=== PATIENT | male | born 1990 | race Hispanic/Latino ===

== ENCOUNTER 2018-11-06 10:15 | Emergency (ER) | payer BC ==
[2018-11-06] MEDS ORDERED: DILAUDID ONE (10:44)
[2018-11-06] MEDS ORDERED: ZOFRAN ONE (10:47)
[2018-11-06] MEDS ORDERED: DILAUDID IV ONE (10:52)
[2018-11-06] MEDS ORDERED: ZOFRAN IV ONE (10:54)
--- NOTE | 2018-11-06 10:57 | XRay Report ---
LEFT HAND, 3 views: History: Hand injury. Findings: A metallic foreign body consistent with a nail is embedded within digits 2 and 3. There is no obvious bony injury or joint pathology. A bandage is in place. IMPRESSION: Foreign body as described. No obvious osseous injury.
[2018-11-06] MEDS ORDERED: BOOSTRIX IM ONE (10:58)
[2018-11-06] MEDS ORDERED: NACL 0.9% IR NR (10:58)
[2018-11-06] MEDS ORDERED: DIPRIVAN 10 MG/ML IV ONE ×2 (10:58→12:11)
[2018-11-06] MEDS ORDERED: SODIUM CHLORIDE FLUSH SYRINGE 10 ML IV NR (11:00)
[2018-11-06] MEDS ORDERED: NACL 0.9% 1000 ML 0 ML ONE (11:05)
--- NOTE | 2018-11-06 11:05 | Emergency Department Report ---
ED General Adult HPI - General Chief complaint: Extremity Injury, Upper Stated complaint: FINGER INJURY Time Seen by Provider: 11/06/18 10:57 Source: patient, family Mode of arrival: Ambulatory Limitations: Physical Limitation - History of Present Illness Initial comments: This is a 28-year-old gentleman, right-hand dominant, with no chronic medical conditions, who presents to the emergency room with a nail that is accidentally shot into his left hand, into the left second and third fingers. This happened just prior to arrival. He has no other injuries. He has no other complaints. He endorses sharp pain, which does not radiate anywhere, which increases with palpation and decreases with rest. He endorses no numbness. He denies other injuries. Not sure of previous tetanus vaccination. He reports that he last ate at approximately 8:00 AM. -: Sudden Location: left, upper extremity Radiation: non-radiation Severity scale (0 -10): 10 Quality: aching Consistency: other Improves with: other Associated Symptoms: denies other symptoms - Related Data Previous Rx's Medication Instructions Recorded Last Taken Type Acetaminophen [Non-Aspirin Extra 500 mg PO Q6HR PRN #30 tablet 11/06/18 Unknown Rx Strength] Ibuprofen [Motrin] 600 mg PO Q8H PRN #30 tablet 11/06/18 Unknown Rx cephALEXin [Keflex] 500 mg PO Q6HR #28 capsule 11/06/18 Unknown Rx oxyCODONE [Roxicodone] 5 mg PO Q6HR PRN #15 tablet 11/06/18 Unknown Rx Allergies Allergy/AdvReac Type Severity Reaction Status Date / Time No Known Allergies Allergy Unverified 11/06/18 10:17 ED Review of Systems ROS: Stated complaint: FINGER INJURY Other details as noted in HPI Constitutional: denies: fever Eyes: denies: eye discharge ENT: denies: epistaxis Respiratory: denies: cough Cardiovascular: denies: chest pain Gastrointestinal: denies: abdominal pain Musculoskeletal: arthralgia, myalgia Neurological: denies: headache, weakness, numbness, paresthesias, confusion Psychiatric: anxiety ED Past Medical Hx - Past Medical History Previous Medical History?: No - Surgical History Past Surgical History?: Yes Hx Appendectomy: Yes - Social History Smoking Status: Never Smoker Substance Use Type: None - Medications Home Medications: Home Medications Medication Instructions Recorded Confirmed Last Taken Type Acetaminophen [Non-Aspirin Extra 500 mg PO Q6HR PRN #30 tablet 11/06/18 Unknown Rx Strength] Ibuprofen [Motrin] 600 mg PO Q8H PRN #30 tablet 11/06/18 Unknown Rx cephALEXin [Keflex] 500 mg PO Q6HR #28 capsule 11/06/18 Unknown Rx oxyCODONE [Roxicodone] 5 mg PO Q6HR PRN #15 tablet 11/06/18 Unknown Rx ED Physical Exam - General Limitations: No Limitations, Physical Limitation General appearance: alert, anxious, in distress - Head Head exam: Present: atraumatic, normocephalic - Eye Eye exam: Present: normal appearance, EOMI, nystagmus - ENT ENT exam: Present: normal exam, normal orophraynx, mucous membranes moist, normal external ear exam - Neck Neck exam: Present: normal inspection, full ROM. Absent: tenderness, meningismus - Respiratory Respiratory exam: Present: normal lung sounds bilaterally. Absent: respiratory distress - Cardiovascular Cardiovascular Exam: Present: regular rate, normal rhythm, normal heart sounds. Absent: bradycardia, tachycardia, irregular rhythm, systolic murmur, diastolic murmur, rubs, gallop - GI/Abdominal GI/Abdominal exam: Present: soft. Absent: distended, tenderness, guarding, rebound, rigid, pulsatile mass - Rectal Rectal exam: Present: deferred - Extremities Exam Extremities exam: Present: normal capillary refill, other (2+ pulses noted in the bilateral upper, lower extremities. Compartments soft. No long bony tenderness. The pelvis is stable.). Absent: normal inspection (full range of motion to the right upper extremity, bilateral lower extremities. In the left upper extremity, a metallic nail is noted, entering the lateral midline aspect of the second finger, and exiting through the same finger, and subsequently entering into the lateral mid aspect of the third digit. ) - Back Exam Back exam: Present: normal inspection, full ROM. Absent: tenderness, CVA tenderness (R), CVA tenderness (L), paraspinal tenderness, vertebral tenderness - Neurological Exam Neurological exam: Present: alert, oriented X3, other (Extraocular movements intact. Tongue midline. No facial droop. Facial sensation intact to light touch in the V1, V2, V3 distribution bilaterally. 5 and 5 strength in 4 extremities.. Sensation is intact to light touch in 4 extremities.). Absent: motor sensory deficit - Psychiatric Psychiatric exam: Present: anxious - Skin Skin exam: Present: warm, dry, intact, normal color. Absent: rash ED Course Vital Signs 11/06/18 11/06/18 11/06/18 10:16 11:04 11:15 Temperature 97.5 F L Temperature [ Post-Procedure] Temperature [ Pre-Procedure] Pulse Rate 88 63 58 L Pulse Rate [ Intra-Procedure ] Pulse Rate [ Post-Procedure] Pulse Rate [Pre -Procedure] Respiratory 20 13 7 L Rate Respiratory Rate [Intra- Procedure] Respiratory Rate [Post- Procedure] Respiratory Rate [Pre- Procedure] Blood Pressure 135/74 108/62 Blood Pressure [Intra- Procedure] Blood Pressure [Post-Procedure ] Blood Pressure [Pre-Procedure] O2 Sat by Pulse 99 Oximetry O2 Sat by Pulse Oximetry [ Intra-Procedure ] 11/06/18 11/06/18 11/06/18 11:30 11:40 11:41 Temperature Temperature [ Post-Procedure] Temperature [ 98 F Pre-Procedure] Pulse Rate 58 L Pulse Rate [ 60 Intra-Procedure ] Pulse Rate [ Post-Procedure] Pulse Rate [Pre 68 -Procedure] Respiratory 10 L Rate Respiratory 12 Rate [Intra- Procedure] Respiratory Rate [Post- Procedure] Respiratory 12 Rate [Pre- Procedure] Blood Pressure 115/70 Blood Pressure 115/70 [Intra- Procedure] Blood Pressure [Post-Procedure ] Blood Pressure 113/72 [Pre-Procedure] O2 Sat by Pulse Oximetry O2 Sat by Pulse 2 L Oximetry [ Intra-Procedure ] 11/06/18 11/06/18 11/06/18 11:45 11:50 11:56 Temperature Temperature [ 98 F Post-Procedure] Temperature [ Pre-Procedure] Pulse Rate 57 L Pulse Rate [ Intra-Procedure ] Pulse Rate [ 62 Post-Procedure] Pulse Rate [Pre -Procedure] Respiratory 12 16 Rate Respiratory Rate [Intra- Procedure] Respiratory 14 Rate [Post- Procedure] Respiratory Rate [Pre- Procedure] Blood Pressure 113/72 Blood Pressure [Intra- Procedure] Blood Pressure 127/82 [Post-Procedure ] Blood Pressure [Pre-Procedure] O2 Sat by Pulse 94 Oximetry O2 Sat by Pulse Oximetry [ Intra-Procedure ] 11/06/18 11/06/18 11/06/18 12:01 12:15 12:30 Temperature Temperature [ Post-Procedure] Temperature [ Pre-Procedure] Pulse Rate 65 61 53 L Pulse Rate [ Intra-Procedure ] Pulse Rate [ Post-Procedure] Pulse Rate [Pre -Procedure] Respiratory 13 10 L 12 Rate Respiratory Rate [Intra- Procedure] Respiratory Rate [Post- Procedure] Respiratory Rate [Pre- Procedure] Blood Pressure 136/89 136/89 118/78 Blood Pressure [Intra- Procedure] Blood Pressure [Post-Procedure ] Blood Pressure [Pre-Procedure] O2 Sat by Pulse 100 100 100 Oximetry O2 Sat by Pulse Oximetry [ Intra-Procedure ] 11/06/18 11/06/18 11/06/18 12:45 13:01 13:15 Temperature Temperature [ Post-Procedure] Temperature [ Pre-Procedure] Pulse Rate 53 L 79 57 L Pulse Rate [ Intra-Procedure ] Pulse Rate [ Post-Procedure] Pulse Rate [Pre -Procedure] Respiratory 9 L 14 11 L Rate Respiratory Rate [Intra- Procedure] Respiratory Rate [Post- Procedure] Respiratory Rate [Pre- Procedure] Blood Pressure 119/77 118/78 118/78 Blood Pressure [Intra- Procedure] Blood Pressure [Post-Procedure ] Blood Pressure [Pre-Procedure] O2 Sat by Pulse 97 97 100 Oximetry O2 Sat by Pulse Oximetry [ Intra-Procedure ] - Reevaluation(s) Reevaluation #1: 11/06/18 13:44 After foreign body removal, patient was noted to be flexing and extending individual fingers without difficulty. Discussed with orthopedics on-call, Dr. Lloyd, who was in agreement with foreign body extraction, thorough cleansing, empiric prophylactic antibiotic coverage, and indicates his group can follow-up with the patient as an outpatient. Extensive discussion had with patient and his . Instructed them that they would need to closely follow up with an outpatient hand surgeon for further evaluation and management. Described the patient would likely need to follow-up with the Worker's Compensation physician. Patient and endorse understanding. Reevaluation #2: 11/06/18 19:51 Mike Carrion, respiratory therapy, present for entire sedation - Procedure Description Procedures done: After moderate sedation with propofol and ketamine, please see moderate sedation portion of procedures documentation, the nail was grasped firmly, and removed with gentle manual traction without difficulty. The patient tolerated this adequately. Then, each finger was irrigated with 500 mL of sterile saline, and another 500 mL of sterile saline with Betadine. Then, each finger was scrubbed thoroughly with soap and a surgical brush, and then Xeroform gauze was gently placed over each aspect of the wound, and then a 4 x 4 dressing was applied, and a frog finger splint was subsequently applied to each finger. The patient tolerated this procedure well, without difficulty. - Moderate Sedation Indications: other Presedation Evaluation: Patient last ate at 8:00 AM. Patient is ASA class I. Endorses no contraindications to moderate sedation. No tobacco use. Risks, benefits, alternatives were discussed with the patient and family, who verbalized understanding, and gave consent for moderate sedation for foreign body extraction, and subsequent thorough cleaning, and splinting. ASA Class: I Mallampati Airway Score: 1 Preparation: registered nurse cardiac telemetry applied, pulse oximeter, reversal agents at bedside , suction/airway equipment at bedside, IV secured Ketamine: IV Ketamine Dose: 50 IV Propofol Dose (mgs): 50 Complications: vomiting/aspiration Interventions: oxygen applied, airway repositioned Patient Tolerated Procedure: well - Orthopedic Splinting/Casting Injury #1 Side: left Upper Extremity Injury Location: finger (second digit) Upper Extremity Immobilizer: finger (other) (frog finger splint) Injury #2 Upper Extremity Injury Location: finger (third digit) Upper Extremity Immobilizer: finger (other) (frog splint) ED Medical Decision Making - Lab Data Vital Signs 11/06/18 11/06/18 11/06/18 10:16 11:04 11:15 Temperature 97.5 F L Temperature [ Post-Procedure] Temperature [ Pre-Procedure] Pulse Rate 88 63 58 L Pulse Rate [ Intra-Procedure ] Pulse Rate [ Post-Procedure] Pulse Rate [Pre -Procedure] Respiratory 20 13 7 L Rate Respiratory Rate [Intra- Procedure] Respiratory Rate [Post- Procedure] Respiratory Rate [Pre- Procedure] Blood Pressure 135/74 108/62 Blood Pressure [Intra- Procedure] Blood Pressure [Post-Procedure ] Blood Pressure [Pre-Procedure] O2 Sat by Pulse 99 Oximetry O2 Sat by Pulse Oximetry [ Intra-Procedure ] 11/06/18 11/06/18 11/06/18 11:30 11:40 11:41 Temperature Temperature [ Post-Procedure] Temperature [ 98 F Pre-Procedure] Pulse Rate 58 L Pulse Rate [ 60 Intra-Procedure ] Pulse Rate [ Post-Procedure] Pulse Rate [Pre 68 -Procedure] Respiratory 10 L Rate Respiratory 12 Rate [Intra- Procedure] Respiratory Rate [Post- Procedure] Respiratory 12 Rate [Pre- Procedure] Blood Pressure 115/70 Blood Pressure 115/70 [Intra- Procedure] Blood Pressure [Post-Procedure ] Blood Pressure 113/72 [Pre-Procedure] O2 Sat by Pulse Oximetry O2 Sat by Pulse 2 L Oximetry [ Intra-Procedure ] 11/06/18 11/06/18 11/06/18 11:45 11:50 11:56 Temperature Temperature [ 98 F Post-Procedure] Temperature [ Pre-Procedure] Pulse Rate 57 L Pulse Rate [ Intra-Procedure ] Pulse Rate [ 62 Post-Procedure] Pulse Rate [Pre -Procedure] Respiratory 12 16 Rate Respiratory Rate [Intra- Procedure] Respiratory 14 Rate [Post- Procedure] Respiratory Rate [Pre- Procedure] Blood Pressure 113/72 Blood Pressure [Intra- Procedure] Blood Pressure 127/82 [Post-Procedure ] Blood Pressure [Pre-Procedure] O2 Sat by Pulse 94 Oximetry O2 Sat by Pulse Oximetry [ Intra-Procedure ] 11/06/18 11/06/18 11/06/18 12:01 12:15 12:30 Temperature Temperature [ Post-Procedure] Temperature [ Pre-Procedure] Pulse Rate 65 61 53 L Pulse Rate [ Intra-Procedure ] Pulse Rate [ Post-Procedure] Pulse Rate [Pre -Procedure] Respiratory 13 10 L 12 Rate Respiratory Rate [Intra- Procedure] Respiratory Rate [Post- Procedure] Respiratory Rate [Pre- Procedure] Blood Pressure 136/89 136/89 118/78 Blood Pressure [Intra- Procedure] Blood Pressure [Post-Procedure ] Blood Pressure [Pre-Procedure] O2 Sat by Pulse 100 100 100 Oximetry O2 Sat by Pulse Oximetry [ Intra-Procedure ] 11/06/18 11/06/18 11/06/18 12:45 13:01 13:15 Temperature Temperature [ Post-Procedure] Temperature [ Pre-Procedure] Pulse Rate 53 L 79 57 L Pulse Rate [ Intra-Procedure ] Pulse Rate [ Post-Procedure] Pulse Rate [Pre -Procedure] Respiratory 9 L 14 11 L Rate Respiratory Rate [Intra- Procedure] Respiratory Rate [Post- Procedure] Respiratory Rate [Pre- Procedure] Blood Pressure 119/77 118/78 118/78 Blood Pressure [Intra- Procedure] Blood Pressure [Post-Procedure ] Blood Pressure [Pre-Procedure] O2 Sat by Pulse 97 97 100 Oximetry O2 Sat by Pulse Oximetry [ Intra-Procedure ] - Radiology Data Radiology results: report reviewed, image reviewed Print Report Referring Physician: CRISTI VIZCAINO Patient Name: SINDY CUEVA JR Date of : 1990 Sex: Male Report Date: 2018-11-06 Report Status: Finalized Findings [facility] [address] [place] [address] XRay Report Signed Patient: SINDY CUEVA JR MR#: [id number] : 1990 Acct:[id number] Age/Sex: 28 / M ADM Date: 11/06/18 Loc: ED Attending Dr: Ordering Physician: CRISTI VIZCAINO MD Date of Service: 11/06/18 Procedure(s): XR hand 2V LT Accession Number(s): [id number] cc: CRISTI VIZCAINO MD Fluoro Time In Minutes: LEFT HAND, 3 views: History: Hand injury. Findings: A metallic foreign body consistent with a nail is embedded within digits 2 and 3. There is no obvious bony injury or joint pathology. A bandage is in place. IMPRESSION: Foreign body as described. No obvious osseous injury. Transcribed By: TTR Dictated By: ELIE PIEDRA JR, MD Electronically Authenticated By: ELIE PIEDRA JR, MD Signed Date/Time: 11/06/18 1053 DD/ 1052 TD/TT: 11/06/18 1053 Critical care attestation.: If time is entered above; I have spent that time in minutes in the direct care of this critically ill patient, excluding procedure time. ED Disposition Clinical Impression: Hx of retained foreign body fully removed Penetrating wound of finger Qualifiers: Encounter type: initial encounter Qualified Code(s): S61.239A - Puncture wound without foreign body of unspecified finger without damage to nail, initial encounter Disposition: -01 TO HOME OR SELFCARE Is pt being admited?: No Does the pt Need Aspirin: No Condition: Stable Additional Instructions: Keep the finger splints in place. Wash wounds with gentle soap and water once every 24 hours. Follow-up with an orthopedic or hand surgeon within the next 3- 5 days. Patient will need to follow-up for repeat examination to exclude flexor tendon injury. Not following up as recommended may resultant undiagnosed tendon injury, which may cause disability, loss of quality of life. Take the pain medication, antibiotics as directed. Return to the emergency room right away with redness, pus, streaking, significant swelling, new, worsening or different symptoms not present on the initial ER evaluation. Patient will likely need to follow-up with her physician in coordination with his Worker's Compensation program and his employer, however, he is welcome to follow up with any of the local listed orthopedic physicians. Prescriptions: cephALEXin [Keflex] 500 mg PO Q6HR #28 capsule Ibuprofen [Motrin] 600 mg PO Q8H PRN #30 tablet PRN Reason: Pain Acetaminophen [Non-Aspirin Extra Strength] 500 mg PO Q6HR PRN #30 tablet PRN Reason: Pain , Severe (7-10) oxyCODONE [Roxicodone] 5 mg PO Q6HR PRN #15 tablet PRN Reason: Pain Referrals: JIM LLOYD MD [Staff Physician] - 3-[address] [facility] [Provider Group] - 3-5 Days
[2018-11-06] MEDS ORDERED: NACL 0.9% 2,000 ML IR ONE (11:07)
[2018-11-06] MEDS ORDERED: NACL 0.9% 1,500 ML IR ONE (11:09)
[2018-11-06] MEDS ORDERED: NACL 0.9% 1000 ML 1,000 ML ONE (11:11)
[2018-11-06] MEDS ORDERED: NACL 0.9% 500 ML IR ONE (11:12)
[2018-11-06] MEDS ORDERED: ceFAZolin 2 GM in NACL 0.9% 100 ML IV ONE (11:30)
[2018-11-06] MEDS ORDERED: NACL 0.9% 1000 ML 1,000 ML IV ONE (11:42)
[2018-11-06] MEDS ORDERED: KETALAR IV ONE ×2 (12:00→12:10)
[2018-11-06] MEDS ORDERED: KETAMINE HCL IV ONE (12:00)
[2018-11-06 13:30] VITALS: BP 118/78
== END 2018-11-06 14:01 | disposition home or self-care (01) ==
LOC: ED 10:15
DX: S61.241A Puncture wound with foreign body of left index finger without damage to nail, initial encounter (principal); Z90.89 Acquired absence of other organs; Z98.890 Other specified postprocedural states
CPT/HCPCS: 10121; 73120; 90471; 90715; 96365; 96375; 99284; J0690; J1170; J2405; J2704; J7030